=== PATIENT | female | born 1945 | race Caucasian/White ===

== ENCOUNTER 2018-09-09 10:54 | Emergency (ER) | payer MEDICARE, MEDICAID ==
[2018-09-09 11:52] VITALS: BP 153/75
--- NOTE | 2018-09-09 12:42 | UC ---
Skin Complaint HPI - HPI Summary HPI Summary: Pt presents with c/o bilateral great toe pain, swelling and mild erythema. Pt has concern for infection. - History of Current Complaint Chief Complaint: UCLowerExtremity Time Seen by Provider: 09/09/18 12:28 Stated Complaint: BI LAT FOOT CONCERN Hx Obtained From: Patient ?: No Onset/Duration: Gradual Onset, Lasting Days, Still Present Skin Exposure Onset/Duration: Days Ago Timing: Constant Onset Severity: Mild Current Severity: Moderate Pain Intensity: 5 Location: Discrete Character: Swelling, Pain, Redness, Painful Aggravating Factor(s): Touch Associated Signs & Symptoms: Positive: Tenderness - Allergy/Home Medications Allergies/Adverse Reactions: Allergies Allergy/AdvReac Type Severity Reaction Status Date / Time bupropion [From Wellbutrin] Allergy See Comment Verified 09/09/18 11:51 Home Medications: Home Medications Albuterol HFA INHALER* [Ventolin HFA Inhaler*] 1 - 2 puff INH Q4H PRN 09/09/18 [ History Confirmed 09/09/18] Budesonide/Formote 160/4.5(NF) [Symbicort 160/4.5 (NF)] 2 puff INH BID 09/09/18 [History Confirmed 09/09/18] Meloxicam [Mobic] 15 mg PO DAILY 09/09/18 [History Confirmed 09/09/18] PMH/Surg Hx/FS Hx/Imm Hx Previously Healthy: Yes Endocrine History: Diabetes Cardiovascular History: Cardiac Disease - Surgical History Surgical History: Yes Surgery Procedure, Year, and Place: Cholecystectomy. Herniorrhaphy. Tubal Ligation - Family History Known Family History: Positive: Cardiac Disease - Social History Occupation: Retired Lives: With Family Alcohol Use: None Substance Use Type: None Smoking Status (MU): Former Smoker Type: Cigarettes Amount Used/How Often: 3 PPD Length of Time of Smoking/Using Tobacco: 13 Years Have You Smoked in the Last Year: No When Did the Patient Quit Smoking/Using Tobacco: 2000 Review of Systems All Other Systems Reviewed And Are Negative: Yes Constitutional: Positive: Negative Skin: Positive: Other - erythema, mild swelling, Eyes: Positive: Negative ENT: Positive: Negative Respiratory: Positive: Negative Cardiovascular: Positive: Negative Gastrointestinal: Positive: Negative Genitourinary: Positive: Negative Motor: Positive: Negative Neurovascular: Positive: Negative Musculoskeletal: Positive: Negative Neurological: Positive: Negative Psychological: Positive: Negative Is Patient Immunocompromised?: No Physical Exam Triage Information Reviewed: Yes Appearance: Well-Appearing, Obese Vital Signs: Initial Vital Signs Temp 98 F 09/09/18 11:48 Pulse 80 09/09/18 11:48 Resp 22 09/09/18 11:48 BP 153/75 09/09/18 11:48 Pulse Ox 92 09/09/18 11:48 Vital Signs Reviewed: Yes Eye Exam: Normal ENT Exam: Normal Dental Exam: Normal Neck exam: Normal Respiratory Exam: Normal Respiratory: Positive: No respiratory distress Musculoskeletal: Positive: Edema @ - non pitting bilateral LE Neurological Exam: Normal Psychological Exam: Normal Skin Exam: Other - bilateral ingrown toenails with mild swelling and dired, serous drainage. oth sides of each toenail. mild tindea on biatlateral feet between toes. Course/Dx - Differential Diagnoses - Skin Complaint Differential Diagnoses: Tinea - Diagnoses Provider Diagnosis: Wound infection, Tinea pedis of both feet Discharge - Sign-Out/Discharge Documenting (check all that apply): Patient Departure All imaging exams completed and their final reports reviewed: No Studies - Discharge Plan Condition: Stable Disposition: HOME Prescriptions: Cephalexin CAP* [Keflex 500 CAP*] 500 mg PO Q8H #30 cap Patient Education Materials: Antifungals (On the skin), Wound Infection (DC), Athlete's Foot (ED) Referrals: Abiel Martin DPM [Doctor of Podiatric Medicine] - As Soon As Possible Bouchra Washington PA [Primary Care Provider] - If Needed - Billing Disposition and Condition Condition: STABLE Disposition: Home
== END 2018-09-09 12:51 | disposition home or self-care (01) ==
LOC: UCCORT 10:54
DX: B35.3 Tinea pedis (principal); E11.9 Type 2 diabetes mellitus without complications; E66.9 Obesity, unspecified; Z88.8 Allergy status to other drugs, medicaments and biological substances; Z87.891 Personal history of nicotine dependence
CPT/HCPCS: 99212; G0463